=== PATIENT | female | born 2000 | race Caucasian/White ===

== ENCOUNTER 2023-06-30 13:52 | Outpatient (AMB) | payer OTHER, SELFPAY ==
--- NOTE | 2023-06-30 14:16 | AM.OFFWIN_ITS ---
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 She reports cough with yellow sputum, sensation of blocked ears, chills, nausea. Denies any shortness of breath. Home Covid testing was negative. Denies known exposure to sick contacts. [facility] Social History Patient Tobacco Use Status: Never used Tobacco Review of Systems Const All systems reviewed & are unremarkable except as noted in HPI and below Physical Exam Vital Signs: Last Vital Signs Temp 97.6 F 06/30/23 14:20 Pulse 78 06/30/23 14:20 BP 102/64 06/30/23 14:20 Pulse Ox 100 06/30/23 14:20 Oxygen Delivery Method Room Air 06/30/23 14:20 BMI result Body Mass Index 27.4 Const General: cooperative and no acute distress HEENT Head: Yes normal to inspection and Yes normocephalic Ears: hearing grossly normal bilaterally, external ears normal and unable to visualize TM (cerumen impaction b/l) bilaterally General nose exam: Normal external nose present, Normal nares present and Nasal discharge present mucoid Face and sinus: Yes sinus tenderness (frontal/maxillary) Mouth: Normal oral and palatal mucosa present Throat: Yes posterior oropharynx normal Neck Neck: Yes no lymphadenopathy Resp Effort & Inspection: normal respiratory effort, able to speak in complete sentences and Actively coughing (yellow sputum) Quality: productive Auscultation: clear to auscultation bilaterally Cardio Jugular venous distension: no JVD Palpation: normal PMI Rate: regular rate Rhythm: regular rhythm Skin General skin exam: no rashes or lesions noted Extrem General: Yes capillary refill normal and Yes no clubbing, cyanosis or edema Psych Appearance: grossly normal Mental Status: mental status grossly normal Speech and movement: Normal speech and movement present Assessment & Plan Assessment & Plan (1) Upper respiratory infection: Code(s): J06.9 - Acute upper respiratory infection, unspecified Qualifiers: URI type: unspecified URI Qualified Code(s): J06.9 - Acute upper respiratory infection, unspecified Plan: Patient now on day 8 with URI with productive cough, sinus tenderness. Will start on azithromycin 5 days. I cannot visualize TMs due to cerumen impaction. Patient declines ear irrigation. She will purchase otc Debrox drops to use. Advised to rest, hydrate, may take otc tylenol prn pain/fever. If she does not improve with treatment she should return to the clinic or PCP for further evaluation. She agrees to plan. Declines viral testing. School note provided. Medications: New azithromycin For 250 mg dose pack: take 500 mg today (day 1), then 250 mg for 4 days (days 2-5) PO 6 tabs 0RF J06.9 - Acute upper respiratory infection, unspecified Coding Level of Care Code Est Pt Level 3 (84761) Diagnoses Upper respiratory tract infection, unspecified type J06.9 URI type: unspecified URI
[2023-06-30 14:20] VITALS: BP 102/64; PULSE 78; TEMP 36.4; O2SAT 100; BMI 27.4
== END 2023-06-30 15:10 | disposition home or self-care (01) ==
PROVIDERS: Visit Provider Nurse Practitioner Family
DX: J06.9 Acute upper respiratory infection, unspecified (principal)
CPT/HCPCS: 99213

== ENCOUNTER 2025-06-22 14:59 | Outpatient (REF) | payer BC, SELFPAY ==
[2025-06-22 17:58] LABS: MANUAL DIFF FLAG NO
[2025-06-22 17:59] LABS: Appearance Urine Clear; Glucose Urine UA Negative (Negative); PH 6.0 (5.0-9.0); Specific Gravity - Urine 1.025 (1.005-1.025)
[2025-06-22 18:27] LABS: Alanine Aminotransferase 12 U/L (0-31); Albumin Level 4.8 g/dL (3.5-5.0); Alkaline Phosphatase 66 U/L (39-117); Anion Gap 10 (12-20); Aspartate Amino Transferase 19 U/L (5-31); Blood Urea Nitrogen 9 mg/dL (9-16); Calcium 9.9 mg/dL (8.4-10.2); Carbon Dioxide 29 mmol/L (22-29); Chloride 106 mmol/L (96-108); Cholesterol 228 mg/dL (<200); Estimated Glomerular Filt Rate > 60; HDL Cholesterol 63 mg/dL (>40); Magnesium 2.3 mg/dL (1.6-2.6); Potassium 3.8 mmol/L (3.3-5.1); Sodium 141 mmol/L (135-145); Total Protein 7.4 g/dL (6.5-8.0); Triglycerides 103 mg/dL (<150)
[2025-06-22 18:32] LABS: Hematocrit 46.0 % (37.0-47.0); Hemoglobin 15.9 g/dl (12.0-16.0); Imm Gran Abs Auto 0.01 X10*3/uL (0.00-0.03); Imm Gran Pct Auto 0.1 % (0.0-0.4); Lymphocytes Absolute Auto 2.2 X10*3/uL (1.2-4.9); Mean Corpuscular HGB Conc 34.6 g/dl (31.0-35.0); Mean Corpuscular Hemoglobin 32.4 pg (27.0-33.0); Mean Corpuscular Volume 93.7 fL (80.0-98.0); NRBC Abs Auto 0.000 X10*3/uL (0.0-0.012); NRBC Pct Auto 0.0 /100WBC (0.0-0.2); Platelet Count 190 X10*3/uL (160-400); Red Blood Count 4.91 X10*6/uL (4.20-5.50); White Blood Count 9.4 X10*3/uL (4.8-10.8)
[2025-06-22 18:48] LABS: Folate 8.8 ng/mL (> or = 4.0); Vitamin B12 360 pg/mL (200-900)
[2025-06-23 08:46] LABS: HBS Num1 5.72 mIU/mL (0-7.99); HBsAGNum1 0.42 S/CO (0.00-0.99); HIV Num 1 0.05 S/CO (0.00-0.99); Hepatitis B Surface Antigen Negative (Negative); ~HepC Num1 0.09 S/CO (0.00-0.79); ~Hepatitis B Surface Antibody NONREACTIVE (Nonreactive); ~Hepatitis C Antibody Nonreactive (Nonreactive)
[2025-06-27 02:49] LABS: VITAMIN D (1,25 OH) D3 40 pg/mL; Vit D (1,25-Dihydroxy) Total 40 pg/mL (18-72); Vitamin D (1,25 OH) D2 <8 pg/mL
== END 2025-06-22 15:00 | disposition home or self-care (01) ==
LOC: HO.HKASLDS 14:59
PROVIDERS: PCP Student in an Organized Health Care Education/Training Program; Visit Provider Student in an Organized Health Care Education/Training Program
DX: Z76.89 Persons encountering health services in other specified circumstances (principal); Z13.9 Encounter for screening, unspecified; Z12.4 Encounter for screening for malignant neoplasm of cervix; F41.9 Anxiety disorder, unspecified; F32.A Depression, unspecified; Z13.1 Encounter for screening for diabetes mellitus; Z13.220 Encounter for screening for lipoid disorders; Z13.6 Encounter for screening for cardiovascular disorders; Z13.31 Encounter for screening for depression; Z71.9 Counseling, unspecified; F43.23 Adjustment disorder with mixed anxiety and depressed mood; H50.89 Other specified strabismus; R11.2 Nausea with vomiting, unspecified
CPT/HCPCS: 36415; 80053; 80061; 81003; 82607; 82652; 82746; 83036; 83735; 84443; 84702; 85025; 86706; 86803; 87340; 87389; 96127

== ENCOUNTER 2025-06-22 14:59 | Outpatient (AMB) | payer BC, SELFPAY ==
--- OUTSIDE RECORDS SUMMARY | 2025-06-22 15:01 | XMS_ITS | Encounter Summary ---
Author Organization [facility] Address [address] [place] [address] Care Team Providers Care Mat Machine Tender Name Role Phone Miki Alexander MD Primary Care Provider Encounter Details Date Type Department Care Team Description 03/17/2022 Release of Information Medical Records [address] [place] [id number] Abstract, Provider Social History Tobacco Use Types Packs/Day Years Used Date Smoking Tobacco: Never Smokeless Tobacco: Never Alcohol Use Standard Drinks/Week Comments Yes 0 (1 standard drink = 0.6 oz pur e alcohol) socially Sex Assigned at Date Recorded Not on file Job Start Date Occupation Industry Not on file Not on file Not on file COVID-19 Exposure Response Date Recorded In the last 10 days, have yo u been in contact with someone who was confirmed or suspected to have Coronavirus/COVID-19? No / Unsure 03/09/2022 8:43 AM EDT documented as of this encounter Plan of Treatment Not on file documented as of this encounter Visit Diagnoses Not on filedocumented in this encounter Care Teams Mat Machine Tender Relationship Specialty Start Date End Date Miki Alexander MD [address] [place] [id number] PCP - General Internal Medicine 02/11/22 documented as of this encounter
--- NOTE | 2025-06-22 15:02 | A.OFFPC_ITS ---
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 Nausea and vomiting: - Reports waves of nausea and vomiting, primarily in the morning and at night, lasting about a month and a half before subsiding. - Avoids eating to prevent vomiting, stone ding to decreased appetite. - Occasionally uses panfilo tea for relie f. Anxiety and depression: - Currently taking fluoxetine for anxiet y and depression, prescribed through an online service. - History of taking this medication sinc e high school, resumed after discontinuation. 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 Review of Systems - Gastrointestinal: Reports nausea and v omiting, primarily in the morning and at night. - Psychiatric: Reports anxiety and depre ssion, currently managed with fluoxetin e. - Ophthalmologic: Reports David's syndr ome with limited eye movement. 10-point ROS reviewed and negative excep t as noted in HPI Past Medical History - Anxiety and depression, managed with f luoxetine - David's syndrome, diagnosed in [facility] Maintenance - Pap smear referral for cervical cancer screening - Comprehensive lab work including CBC, CMP, lipid panel, and thyroid function tests Physical Exam General: Well-appearing, in no acute distress. Vital signs: Within normal limits. HEENT: Normocephalic, atraumatic. PERRLA, EOMI with noted David's syndrome causing eye crossing when looking to the side. Conjunctiva clear, sclera anicteric. Oropharynx clear, mucous membranes moist. TMs intact bilaterally. Neck: Supple, no lymphadenopathy, no thyromegaly, no JVD or carotid bruits. Cardiovascular: RRR, normal S1/S2, no murmurs, rubs, or gallops. Peripheral pulses 2+ and symmetric. No edema. Respiratory: Lungs clear to auscultation bilaterally, no wheezes, rales, or rh onchi. Normal effort. Abdomen: Soft, non-tender, non-distended. Normoactive bowel sounds. No hepatosplenomegaly, no masses. MSK: Full range of motion, no joint swelling or deformity. Normal gait. Skin: Warm, dry, intact. No rashes, lesions, or pallor. Neuro: Alert and oriented x3. Cranial nerves II-XII intact. Strength 5/5 throughout. Sensation intact. Reflexes 2+ symmetric. Normal coordination and gait. Psych: Appropriate mood and affect. Normal judgment and insight. Patient is on fluoxetine for anxiety and depression, with a referral for behavioral health. Plan 1. Nausea And Vomiting - Conduct comprehensive lab work includi ng CBC, CMP, and thyroid function tests. - Try vitamin B6 and panfilo for relief. 2. Anxiety And Depression - Continue fluoxetine and refer to [facility]. 3. David's Syndrome - No specific intervention discussed. Discussion Notes I discussed with the patient the plan to conduct comprehensive lab work to identify potential causes of her nausea and vomiting. We also talked about trying vitamin B6 and panfilo for symptomatic relief. I explained the importance of continuing fluoxetine for anxiety and depression and provided a referral to behavioral health for further support. Additionally, I informed her about the Pap smear referral for cervical cancer screening and the option to have it done by an OBGYN if preferred. Patient Instructions - Complete the lab tests as ordered to [facility] identify the cause of nausea and vomiting. - Try vitamin B6 and panfilo to help with nausea. - Continue taking fluoxetine as prescrib ed for anxiety and depression. - Follow up with behavioral health for a dditional support. - Schedule a Pap smear with an OBGYN for cervical cancer screening. [facility] Medical History (Updated 06/22/25 @ 15:23 by Wilfred Nicole MD) Depression Anxiety Family History (Updated 06/22/25 @ 15:04 by Aury Carver MA) Father No problems noted. Mother No problems noted. Social History (Updated 06/22/25 @ 15:04 by Aury Carver MA) Housing: Apartment Alcohol intake: current Alcohol intake frequency: does not drink Patient Tobacco Use Status: Never used Tobacco Substance Use Type: Marijuana service: No Current occupational status: employed Cognitive needs: No Hearing needs: No Vision needs: Yes (rx glasses) Questionnaire PHQ-9 Over the last 2 weeks, how often have you been bothered by any of the following problems? 1. Little interest or pleasure in doing things: several days 2. Feeling down, depressed, or hopeless: more than half the days 3. Trouble falling or staying asleep, or sleeping too much: more than half the days 4. Feeling tired or having little energy: more than half the days 5. Poor appetite or overeating: more than half the days 6. Feeling bad about yourself - or that you are a failure or have let yourself or your family down: more than half the days 7. Trouble concentrating on things, such as reading the newspaper or watching television: more than half the days 8. Moving or speaking so slowly that other people could have noticed. Or the opposite - being so fidgety or restless that you have been moving around a lot more than usual: more than half the days 9. Thoughts that you would be better off or of hurting yourself in some way: several days Total score: 16 Depression Screening Interpretation: Positive Depression Screening Done: Yes Source: Developed by Drs. Usama Schneider, Santa Pérez, Rafat Vaughn and colleagues, with an educational derick from [employer]. Thrive Questionnaire Date Thrive assessed: 06/22/25 I am a: Patient What is your living situation today?: I have a steady place to live Within the past 12 months, did the food you bought not last and you didn't have the money to get more?: Sometimes True Within the past 12 months, did you worry whether your food would run out before you got money to buy more?: Sometimes True Do you have trouble paying for medicines?: No Do you have trouble getting transportation to medical appointments?: No Do you have trouble paying your heating and electricity bill?: Yes Do you have trouble taking care of your child, family member or friend?: No Are you currently unemployed and looking for a job?: No Are you interested in more education?: Yes Please select the resources that you would like help with: None Currently or been in a relationship where the following occur: Controlled Emotionally THRIVE Score: 4 AUDIT C Alcohol Use Questionnaire (AUDIT-C) 1. How often do you have a drink containing alcohol?: Monthly or less 2. How many drinks containing alcohol do you have on a typical day when you are drinking?: 1 or 2 3. How often do you have six or more drinks on one occasion?: Less than monthly Total Score: 2 ROSA ELENA-7 AMB Questionnaire ROSA ELENA-7 Date ROSA ELENA - 7 assessed: 06/22/25 Feeling nervous, anxious, or on edge: 3 = Nearly every day Not being able to stop or control worryin = Nearly every day Worrying too much about different things: 3 = Nearly every day Trouble relaxin = Nearly every day Being so restless that it is hard to sit still: 3 = Nearly every day Becoming easily annoyed or irritable: 3 = Nearly every day Feeling afraid as if something awful might happen: 3 = Nearly every day Total ROSA ELENA-7 score (0-4 normal; 5-9 mild; 10-14 moderate; 15-21 severe): 21 Source: Developed by Drs. Usama Schneider, Santa Pérez, Rafat Vaughn and colleagues, with an educational derick from [employer]. Physical exam (Primary Care) Tobacco/Smoking Status: Tobacco use Status Tobacco use date assessed 06/22/25 06/22/25 15:06 Patient Tobacco Use Status Never used Tobacco 06/22/25 15:06 PHQ-9: PHQ-9 Score PHQ-9: Total score 16 06/22/25 15:06 Depression Screening Interpretation: Positive Thrive Assessment: Date of Thrive Assessment Date Thrive assessed 06/22/25 06/22/25 15:06 Currently or been in a relationship where the following occur: Controlled Emotionally Coding Level of Care Code New Pt Level 3 (38934) Diagnoses Establishing care with new doctor, encounter for Z76.89 Encounter for screening, unspecified Z13.9 Screening for diabetes mellitus Z13.1 Screening for lipoid disorders Z13.220 Hypertension screen Z13.6 Screening for depression Z13.31 Counseling, unspecified Z71.9 Adjustment disorder with mixed anxiety and depressed mood F43.23 Anxiety F41.9 Depression F32.A 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 Nausea and vomiting R11.2 Cervical cancer screening Z12.4 Assessment & Plan Assessment & Plan (1) Establishing care with new doctor, encounter for: Code(s): Z76.89 - Persons encountering health services in other specified circumstances (2) Encounter for screening, unspecified: Code(s): Z13.9 - Encounter for screening, unspecified (3) Screening for diabetes mellitus: Code(s): Z13.1 - Encounter for screening for diabetes mellitus (4) Screening for lipoid disorders: Code(s): Z13.220 - Encounter for screening for lipoid disorders (5) Hypertension screen: Code(s): Z13.6 - Encounter for screening for cardiovascular disorders (6) Screening for depression: Code(s): Z13.31 - Encounter for screening for depression (7) Counseling, unspecified: Code(s): Z71.9 - Counseling, unspecified (8) Adjustment disorder with mixed anxiety and depressed mood: Code(s): F43.23 - Adjustment disorder with mixed anxiety and depressed mood (9) Anxiety: Code(s): F41.9 - Anxiety disorder, unspecified Category: Medical (10) Depression: Code(s): F32.A - Depression, unspecified Category: Medical (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 (12) Nausea and vomiting: Code(s): R11.2 - Nausea with vomiting, unspecified (13) Cervical cancer screening: Code(s): Z12.4 - Encounter for screening for malignant neoplasm of cervix Plan Orders: Orders Complete Blood Count Auto Diff Today Z13.9 - Encounter for screening, unspecified, Z76.89 - Persons encountering health services in other specified circumstances Hemoglobin A1c Today Z13.9 - Encounter for screening, unspecified, Z76.89 - Persons encountering health services in other specified circumstances Magnesium Today Z13.9 - Encounter for screening, unspecified, Z76.89 - Persons encountering health services in other specified circumstances Vitamin B12 and Folate Today Z13.9 - Encounter for screening, unspecified, Z76.89 - Persons encountering health services in other specified circumstances Vitamin D 1,25 dihydroxy Today Z13.9 - Encounter for screening, unspecified, Z76.89 - Persons encountering health services in other specified circumstances HCG Quantitative Today Z13.9 - Encounter for screening, unspecified, Z76.89 - Persons encountering health services in other specified circumstances Comprehensive Met. Panel Today Z13.9 - Encounter for screening, unspecified, Z76.89 - Persons encountering health services in other specified circumstances Hepatitis B Surface Antibody Today Z13.9 - Encounter for screening, unspecified, Z76.89 - Persons encountering health services in other specified circumstances Hepatitis B Surface Antigen Today Z13.9 - Encounter for screening, unspecified, Z76.89 - Persons encountering health services in other specified circumstances Hepatitis C Antibody Today Z13.9 - Encounter for screening, unspecified, Z76.89 - Persons encountering health services in other specified circumstances HIV Ab/Ag Today Z13.9 - Encounter for screening, unspecified, Z76.89 - Persons encountering health services in other specified circumstances Lipid Panel Today Z13.9 - Encounter for screening, unspecified, Z76.89 - Per sons encountering health services in other specified circumstances TSH reflex Free T4 Today Z13.9 - Encounter for screening, unspecified, Z76.89 - Persons encountering health services in other specified circumstances UA CC w/rflx Micro + Cult Today Z13.9 - Encounter for screening, unspecified, Z76.89 - Persons encountering health services in other specified circumstances Referrals Behavioral Health Referral F32.A - Depression, unspecified, F41.9 - Anxiety disorder, unspecified AVIATION ENGINEER Referral Z12.4 - Encounter for screening for malignant neoplasm of cervix
[2025-06-22 15:11] VITALS: BP 120/78; PULSE 90; RESP 16; TEMP 36.8; O2SAT 96; BMI 24.8
== END 2025-06-22 15:30 | disposition home or self-care (01) ==
LOC: HO.HMCFMS 15:00
PROVIDERS: PCP Student in an Organized Health Care Education/Training Program; Visit Provider Student in an Organized Health Care Education/Training Program
DX: R11.2 Nausea with vomiting, unspecified (principal); F43.23 Adjustment disorder with mixed anxiety and depressed mood; F41.9 Anxiety disorder, unspecified; F32.A Depression, unspecified; H50.89 Other specified strabismus

== ENCOUNTER 2025-07-02 16:00 | Outpatient (AMB) | payer BC, SELFPAY ==
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
[2025-07-02 16:14] VITALS: BP 111/82; PULSE 71; RESP 16; TEMP 37.1; O2SAT 97; BMI 24.1
== END 2025-07-02 16:38 | disposition home or self-care (01) ==
LOC: HO.HMCFMS 16:01
PROVIDERS: PCP Student in an Organized Health Care Education/Training Program; Visit Provider Student in an Organized Health Care Education/Training Program
DX: E78.2 Mixed hyperlipidemia (principal); R11.0 Nausea